=== PATIENT | male | born 1985 | race Two or more races ===

== ENCOUNTER 2016-12-22 08:57 | Emergency (ER) | payer MEDICAID, OTHER ==
[~2016-12-22] VITALS: Ht 190.5 cm; Wt 100.0 kg
[2016-12-22] MEDS ORDERED: ONDANSETRON 4MG/2ML VIAL (J2405) IV ONE (09:45)
[2016-12-22] MEDS ORDERED: MORPHINE 4 MG/ML 1ML SYRINGE IV ONE (09:45)
[2016-12-22] MEDS ORDERED: NS 1,000 ML IV ONE (09:45)
[2016-12-22 09:59] LABS: BASO % 0.3 % (0.0-1.0); EOS # 0.1 K/mm3 (0.0-0.50); EOS % 1.7 % (0.0-3.0); LARGE UNSTAINED CELL # 0.1 K/mm3 (0.0-0.4); LARGE UNSTAINED CELL % 0.9 % (0.0-4.0); LYMPH # 0.9 K/mm3 (1.5-4.5); LYMPH % 13.5 % (24.0-44.0); MEAN CORPUSCULAR HEMOGLOBIN 30.4 pg (27.0-33.0); MEAN CORPUSCULAR HGB CONC 36.5 g/dl (32.0-36.5); MEAN CORPUSCULAR VOLUME 83.4 fl (80.0-96.0); MONO # 0.2 K/mm3 (0.0-0.8); MONO % 3.4 % (0.0-5.0); NEUTROPHILS # 5.4 K/mm3 (1.8-7.7); NEUTROPHILS % 80.3 % (36.0-66.0); PLATELET COUNT, AUTOMATED 208 k/mm3 (150-450); WHITE BLOOD COUNT 6.7 K/mm3 (4.0-10.0)
--- NOTE | 2016-12-22 10:17 | REP ---
CT abdomen pelvis without IV or bowel contrast: There is a 3 mm calculus in the distal left ureter at the level of the left acetabulum. There is mild left hydronephrosis. There are no left renal calculi. There are no right renal or ureteral calculi. There are no bladder calculi. The visualized lung joseph are unremarkable. There is hepato steatosis. The liver is otherwise unremarkable. The gallbladder, pancreas, spleen, adrenals and abdominal aorta are unremarkable. The bowel and mesentery are unremarkable. Pelvis: The appendix has a normal appearance. The bladder is unremarkable. There is a small fat-containing left inguinal hernia. There is no adenopathy or ascites. Impression: 3 mm obstructive calculus in the distal left ureter at the level of the left acetabulum. Mild left hydronephrosis. Small fat-containing left inguinal hernia. Signed by Roney Gorman MD 12/22/2016 10:08 A
[2016-12-22 10:19] LABS: ALBUMIN 4.6 GM/DL (3.2-5.2); ALBUMIN/GLOBULIN RATIO 1.35 (1.00-1.93); ALKALINE PHOSPHATASE 85 U/L (45-117); ALT/SGPT 106 U/L (12-78); ANION GAP 9 MEQ/L (8-16); AST/SGOT 32 U/L (15-37); BILIRUBIN,TOTAL 0.7 MG/DL (0.2-1.0); BLOOD UREA NITROGEN 13 MG/DL (7-18); CALCIUM LEVEL 9.3 MG/DL (8.5-10.1); CARBON DIOXIDE LEVEL 26 MEQ/L (21-32); CHLORIDE LEVEL 107 MEQ/L (98-107); CREATININE FOR GFR 1.25 MG/DL (0.70-1.30); GLOMERULAR FILTRATION RATE > 60.0 (>60); GLUCOSE, FASTING 103 MG/DL (70-105); POTASSIUM SERUM 3.9 MEQ/L (3.5-5.1); SODIUM LEVEL 142 MEQ/L (136-145)
[2016-12-22] MEDS ORDERED: PERC5TAB12 PO (11:13)
[2016-12-22] MEDS ORDERED: CIPR-249 PO (11:13)
[2016-12-22] MEDS ORDERED: FLOM5CAP PO (11:13)
[2016-12-22] MEDS ORDERED: IBUP80TA PO (11:13)
[2016-12-22] MEDS ORDERED: CIPROFLOXACIN 500 MG TAB PO ONE (11:15)
[2016-12-22] MEDS ORDERED: TAMSULOSIN 0.4 MG CAP PO ONE (11:15)
[2016-12-22] MEDS ORDERED: NS 500 ML IV ONE (11:15)
[2016-12-22 11:19] VITALS: BP 130/86
== END 2016-12-22 11:25 | disposition home or self-care (01) ==
LOC: M ED 08:57
DX: K40.90 Unilateral inguinal hernia, without obstruction or gangrene, not specified as recurrent (principal); N20.1 Calculus of ureter; N39.0 Urinary tract infection, site not specified; Z91.048 Other nonmedicinal substance allergy status; Z88.8 Allergy status to other drugs, medicaments and biological substances

== ENCOUNTER → 2017-01-14 | Outpatient (REF) | payer OTHER, MEDICAID ==
[~2017-01-14] MED LIST: CIPR-249 PO; FLOM5CAP PO; IBUP80TA PO; PERC5TAB12 PO
== END ==
LOC: M LAB REF 13:11
PROVIDERS: ATTEND Nurse Practitioner Women's Health
DX: N13.2 Hydronephrosis with renal and ureteral calculous obstruction (principal)

== ENCOUNTER → 2017-05-21 | Outpatient (REF) | payer OTHER, MEDICAID ==
[2017-05-21 15:04] LABS: BASO % 0.7 % (0.0-1.0); EOS # 0.2 10^3/uL (0.0-0.50); EOS % 3.4 % (0.0-3.0); HEMATOCRIT 48.1 % (42.0-52.0); HEMOGLOBIN 16.8 g/dl (14.0-18.0); IMMATURE GRANULOCYTE % 0.3 % (0-3.0); LYMPH # 1.7 10^3/uL (1.5-4.5); LYMPH % 28.2 % (24.0-44.0); MEAN CORPUSCULAR HEMOGLOBIN 29.1 pg (27.0-33.0); MEAN CORPUSCULAR HGB CONC 34.9 g/dl (32.0-36.5); MEAN CORPUSCULAR VOLUME 83.2 fl (80.0-96.0); MONO # 0.5 10^3/uL (0.0-0.8); MONO % 8.8 % (0.0-5.0); NEUTROPHILS # 3.5 10^3/uL (1.8-7.7); NEUTROPHILS % 58.6 % (36.0-66.0); PLATELET COUNT, AUTOMATED 207 10^3/uL (150-450); RED BLOOD COUNT 5.78 10^6/uL (4.30-6.10); RED CELL DISTRIBUTION WIDTH 12.3 % (11.5-14.5); WHITE BLOOD COUNT 5.9 10^3/uL (4.0-10.0)
[2017-05-21 15:23] LABS: TOTAL 25(OH) VITAMIN D 48.7 NG/ML (30.0-100.0)
[2017-05-21 15:39] LABS: ALBUMIN 4.5 GM/DL (3.2-5.2); ALBUMIN/GLOBULIN RATIO 1.29 (1.00-1.93); ALKALINE PHOSPHATASE 100 U/L (45-117); ALT/SGPT 81 U/L (12-78); ANION GAP 8 MEQ/L (8-16); AST/SGOT 24 U/L (7-37); BLOOD UREA NITROGEN 17 MG/DL (7-18); CALCIUM LEVEL 9.2 MG/DL (8.5-10.1); CARBON DIOXIDE LEVEL 26 MEQ/L (21-32); CHLORIDE LEVEL 106 MEQ/L (98-107); GLOMERULAR FILTRATION RATE > 60.0 (>60); GLUCOSE, FASTING 87 MG/DL (70-100); POTASSIUM SERUM 3.9 MEQ/L (3.5-5.1); SODIUM LEVEL 140 MEQ/L (136-145)
== END ==
LOC: M SFHCSACK 08:22
DX: Z00.00 Encounter for general adult medical examination without abnormal findings (principal); E55.9 Vitamin D deficiency, unspecified

== ENCOUNTER → 2018-06-20 | Outpatient (REF) | payer OTHER, MEDICAID ==
[~2018-06-20] MED LIST changes: +FLOM0.4C39 PO; -FLOM5CAP PO
== END ==
LOC: M SFHCSACK 08:13
PROVIDERS: ATTEND Physician Assistant
DX: Z53.9 Procedure and treatment not carried out, unspecified reason (principal); E55.9 Vitamin D deficiency, unspecified; Z13.220 Encounter for screening for lipoid disorders; Z87.442 Personal history of urinary calculi

== ENCOUNTER → 2023-12-16 | Outpatient (REF) | payer OTHER, MEDICAID | LOC: M LAB REF 12:44 | PROVIDERS: ATTEND Physician Assistant | DX: J02.9 Acute pharyngitis, unspecified (principal) ==